=== PATIENT | male | born 1985 | race Caucasian/White ===

== ENCOUNTER 2016-12-12 18:03 | Emergency (ER) | payer BC, MEDICAID ==
[2016-12-12 18:09] VITALS: BP 147/98
--- NOTE | 2016-12-12 18:09 | UC ---
Dizzy HPI HPI Summary: 30 YEAR OLD MALE PRESENTS WITH COMPLAINS OF VERTIGO WHEN HE GOES DOWN THE STAIRS. - History Of Current Complaint Stated Complaint: VERTIGO Time Seen by Provider: 12/12/16 18:07 Onset/Duration: Gradual Onset Timing: Intermittent Episode Lasting Severity Initially: Moderate Severity Currently: Moderate Pain Scale Used: 0-10 Numeric - 5 Character: Lightheaded Aggravating Factor(s): Position Change Alleviating Factor(s): Rest - Allergies/Home Medications Allergies/Adverse Reactions: Allergies Allergy/AdvReac Type Severity Reaction Status Date / Time No Known Allergies Allergy Verified 12/12/16 18:08 Home Medications: Home Medications NK [No Home Medications Reported] 12/12/16 [History Confirmed 12/12/16] PMH/Surg Hx/FS Hx/Imm Hx Previously Healthy: Yes Review of Systems Constitutional: Negative Skin: Negative Eyes: Negative ENT: Negative Respiratory: Negative Cardiovascular: Negative Gastrointestinal: Negative Genitourinary: Negative Motor: Negative Neurovascular: Negative Musculoskeletal: Negative Neurological: Other - DIZZINESS VERTIGO Psychological: Negative All Other Systems Reviewed And Are Negative: Yes Physical Exam Triage Information Reviewed: Yes Eye Exam: Normal ENT Exam: Normal Dental Exam: Normal Neck exam: Normal Neck: Positive: 1 Respiratory Exam: Normal Cardiovascular Exam: Normal Abdominal Exam: Normal Musculoskeletal Exam: Normal Neurological Exam: Normal Psychological Exam: Normal Skin Exam: Normal Dizzy Course/Dx - Differential Dx/Diagnosis Provider Diagnoses: BENIGN POSITIONAL VERTIGO Discharge - Discharge Plan Condition: Stable Disposition: HOME Prescriptions: Meclizine TAB* [Antivert 12.5 TAB*] 25 mg PO TID #30 tab Patient Education Materials: Dizziness (ED), Vertigo (ED), Benign Paroxysmal Positional Vertigo (ED) Forms: *Work Release Referrals: Ann Granados MD [Medical Doctor] -
[2016-12-12] MEDS ORDERED: Nitrofurantoin Macrocrystals* 50 MG CAP PO ONE (18:26)
== END 2016-12-12 18:36 | disposition home or self-care (01) ==
LOC: UCEAST 18:03
DX: H81.10 Benign paroxysmal vertigo, unspecified ear (principal)
CPT/HCPCS: 99202; G0463

== ENCOUNTER 2018-02-16 10:03 | Emergency (ER) | payer SELFPAY ==
[2018-02-16 11:13] VITALS: BP 148/97
--- NOTE | 2018-02-16 12:19 | UC ---
Ear Complaint HPI - HPI Summary HPI Summary: 32-year-old male presents with one-week history of bilateral ear pain. States he has had a couple weeks of URI symptoms including stuffy nose, clear nasal discharge, and a nonproductive cough. Denies fever, chills, headache, dizziness , vertigo, ear drainage, sore throat, chest pain, shortness of breath, abdominal pain, nausea, or vomiting. - History of Current Complaint Chief Complaint: UCEar Stated Complaint: EAR PAIN Time Seen by Provider: 02/16/18 11:49 Hx Obtained From: Patient Onset/Duration: Gradual Onset, Lasting Weeks - 1 Severity Currently: Mild Pain Intensity: 1 Aggravating Factors: Nothing Alleviating Factors: Nothing Associated Signs/Symptoms: Positive: URI Symptoms - Allergies/Home Medications Allergies/Adverse Reactions: Allergies Allergy/AdvReac Type Severity Reaction Status Date / Time No Known Allergies Allergy Verified 02/16/18 11:13 PMH/Surg Hx/FS Hx/Imm Hx Previously Healthy: Yes - Denies significant PMH - Surgical History Surgical History: Yes Surgery Procedure, Year, and Place: LASER SURGERY FOR DIABETIC REASONS. [facility]ENAIL - Family History Family History: Noncontributory - Social History Occupation: Employed Full-time Lives: With Family Alcohol Use: Rare Substance Use Type: None Smoking Status (MU): Never Smoked Tobacco Review of Systems Constitutional: Negative Skin: Negative Eyes: Negative ENT: Ear Ache, Nasal Discharge Respiratory: Negative Cardiovascular: Negative Is Patient Immunocompromised?: No All Other Systems Reviewed And Are Negative: Yes Physical Exam Triage Information Reviewed: Yes Appearance: Well-Appearing, No Pain Distress, Well-Nourished Vital Signs: Initial Vital Signs Temp 98.2 F 02/16/18 11:08 Pulse 98 02/16/18 11:08 Resp 18 02/16/18 11:08 BP 148/97 02/16/18 11:08 Pulse Ox 98 02/16/18 11:08 Eyes: Positive: Conjunctiva Clear. Negative: Discharge ENT: Positive: Hearing grossly normal, Pharynx normal, Nasal congestion, TM dull - bilateral, TM red - bilateral, Uvula midline. Negative: Nasal drainage, Sinus tenderness Neck: Positive: Supple, Nontender, No Lymphadenopathy Respiratory: Positive: Lungs clear, Normal breath sounds, No respiratory distress Cardiovascular: Positive: RRR, No Murmur Neurological: Positive: Alert Skin Exam: Normal Ear Complaint Course/Dx - Course Course Of Treatment: 32 year old male with 1 week hisory of bilateral ear pain. Exam reveals bilateral otitis media. Will treat with 10 day course of Augmentin and ibuprofen PRN for pain management. He is to follow up at the [facility] in 2 weeks for recheck as he states he is currently without insurance. Warning symptoms were reviewed with the patient. Verbalizes understanding and agrees with POC. - Differential Dx/Diagnosis Provider Diagnoses: Bilateral otitis media, elevated blood pressure reading Discharge - Sign-Out/Discharge Documenting (check all that apply): Patient Departure All imaging exams completed and their final reports reviewed: No Studies - Discharge Plan Condition: Stable Disposition: HOME Prescriptions: Amoxicillin/Clavulanate TAB* [Augmentin TAB 875*] 875 mg PO BID #20 tab Ibuprofen 600 mg PO Q8HR PRN #30 tablet PRN Reason: Pain Patient Education Materials: Ear Infection (ED) Forms: *Work Release Referrals: Liana Robles MD [Primary Care Provider] - [facility] [Outside] - 2 Weeks (For recheck of ears in 2 weeks.) Additional Instructions: Your exam today revealed an ear infection in both ears. Do not take any more of the penicillin you had left over at home. This should be disposed of by placing a bag with some Let her and thrown out in the garbage. Start taking Augmentin one tablet twice a day for 10 days. He should take this with food to avoid upset stomach. Its very important that you finish the entire course of this antibiotic even if you are feeling better. Take ibuprofen 600 mg every 8 hours as needed for pain. I have given you a voucher to take tear pharmacy that will allow you to get these medications free of charge. Your blood pressure was elevated in the clinic today. It is recommended that you follow up with a primary care provider to have this rechecked. Follow-up at the [facility] in 2 weeks to have your blood pressure and ears rechecked. Seek immediate medical attention in the emergency room if you develop a fever greater than 100.5 F, have a severe headache, drainage or bleeding from your ears, become weak or dizzy, or have any worsening of symptoms. - Billing Disposition and Condition Condition: STABLE Disposition: Home - Attestation Statements Provider Attestation: Per institutional requirements, I have reviewed the chart, however, I was not consulted specifically or made aware of this patient by the midlevel provider. I did not personally evaluate, interact with , or disposition this patient.
== END 2018-02-16 12:23 | disposition home or self-care (01) ==
LOC: UCEAST 10:03
DX: H66.93 Otitis media, unspecified, bilateral (principal); R03.0 Elevated blood-pressure reading, without diagnosis of hypertension
CPT/HCPCS: 99212; G0463